=== PATIENT | female | born 1965 | race Two or more races ===

== ENCOUNTER 2018-09-26 11:42 | Inpatient (IN) | payer BC ==
[~2018-09-26] VITALS: Ht 170.2 cm; Wt 59.0 kg
[2018-09-26 11:43] VITALS: BP 113/57
[2018-09-26] MEDS ORDERED: Thiamine 100mg tab ORAL ONE (12:30)
[2018-09-26 13:09] LABS: APPEARANCE,URINE CLEAR; BILIRUBIN, URINE NEGATIVE (NEGATIVE); COLOR,URINE PALE YELLOW; GLUCOSE, URINE (UA) NEGATIVE (NEGATIVE); KETONES,URINE NEGATIVE (NEGATIVE); LEUKOCYTE ESTERASE ,URINE NEGATIVE (NEGATIVE); NITRITE,URINE NEGATIVE (NEGATIVE); PH,URINE 7 (4.5-8.0); PROTEIN,URINE NEGATIVE (NEGATIVE); UROBILINOGEN,URINE NORMAL MG/DL (0.0-1.0)
[2018-09-26 13:14] LABS: BASOPHILS % (AUTO) 1.1 % (0.0-2.0); HEMATOCRIT 37.8 % (37.0-47.0); HEMOGLOBIN 12.4 G/DL (12.0-16.0); LYMPHOCYTES % (AUTO) 35.7 % (20.0-45.0); MEAN CORPUSCULAR VOLUME 80 FL (80-99); MONOCYTES % (AUTO) 6.9 % (1.0-10.0); NEUTROPHILS % (AUTO) 55.3 % (45.0-75.0); PLATELET COUNT 149 K/UL (150-450); RED BLOOD COUNT 4.71 M/UL (4.20-5.40); RED CELL DISTRIBUTION WIDTH 14.9 % (11.6-14.8); WHITE BLOOD COUNT 4.1 K/UL (4.8-10.8)
--- NOTE | 2018-09-26 13:17 | Emergency Room Report ---
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 The shading painter reports that the patient has been drinking heavily over the past several months Today the patient did not appear to recognize a shading painter Appeared to be more anxious and tremulous Also reporting that the patient was taking Ativan with alcohol and therefore contacted the paramedics Again patient here appears anxious tremulous Is a poor historian and cannot provide history of why she was brought to the ER Allergies: Coded Allergies: No Known Allergies (Unverified , 09/26/18) Patient History Limited by: medical condition Past Medical History: see triage record Pertinent Family History: none Now: No Reviewed Nursing Documentation: PMH: Agreed; PSxH: Agreed Nursing Documentation-PMH Past Medical History: No Stated History Review of Systems All Other Systems: limited - Other than the ones mentioned in the history of present illness all others are reviewed however they do stay limited due to the patient's mental status Physical Exam Vital Signs Date Time Temp Pulse Resp B/P (MAP) Pulse Ox O2 Delivery O2 Flow Rate FiO2 09/26/18 11:39 97.9 78 16 108/72 99 Room Air Sp02 EP Interpretation: reviewed, normal General Appearance: mild distress - Tremulous Head: normocephalic, atraumatic Eyes: bilateral eye PERRL, bilateral eye EOMI ENT: dry mucus membranes Neck: supple Respiratory: lungs clear, normal breath sounds Cardiovascular #1: tachycardia Gastrointestinal: non tender, soft Genitourinary: no CVA tenderness Musculoskeletal: normal inspection, back normal Neurologic: responsive - Patient is alert makes eye contact she does appear somewhat confused has difficulty appropriately answering questions, able to follow simple commands no change in speech, Skin: normal color, no rash Lymphatic: no adenopathy Medical Decision Making Diagnostic Impression: Primary Impression: Encephalopathy Additional Impressions: Rhabdomyolysis Alcohol abuse ER Course Patient appears altered and confused Given the history of alcohol abuse differentials of Wernicke's encephalopathy Other encephalopathy 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 patient shows signs of rhabdomyolysis as well Further hydrated medications are provided and patient requires inpatient care Labs Test 09/26/18 12:35 09/26/18 13:59 09/27/18 06:20 White Blood Count 4.1 K/UL (4.8-10.8) Red Blood Count 4.71 M/UL (4.20-5.40) Hemoglobin 12.4 G/DL (12.0-16.0) Hematocrit 37.8 % (37.0-47.0) Mean Corpuscular Volume 80 FL (80-99) Mean Corpuscular Hemoglobin 26.3 PG (27.0-31.0) Mean Corpuscular Hemoglobin Concent 32.7 G/DL (32.0-36.0) Red Cell Distribution Width 14.9 % (11.6-14.8) Platelet Count 149 K/UL (150-450) Mean Platelet Volume 6.5 FL (6.5-10.1) Neutrophils (%) (Auto) 55.3 % (45.0-75.0) Lymphocytes (%) (Auto) 35.7 % (20.0-45.0) Monocytes (%) (Auto) 6.9 % (1.0-10.0) Eosinophils (%) (Auto) 1.0 % (0.0-3.0) Basophils (%) (Auto) 1.1 % (0.0-2.0) Urine Color Pale yellow Urine Appearance Clear Urine pH 7 (4.5-8.0) Urine Specific [place] 1.005 (1.005-1.035) Urine Protein Negative (NEGATIVE) Urine Glucose (UA) Negative (NEGATIVE) Urine Ketones Negative (NEGATIVE) Urine Blood Negative (NEGATIVE) Urine Nitrite Negative (NEGATIVE) Urine Bilirubin Negative (NEGATIVE) Urine Urobilinogen Normal MG/DL (0.0-1.0) Urine Leukocyte Esterase Negative (NEGATIVE) Sodium Level 139 MMOL/L (136-145) 140 MMOL/L (136-145) Potassium Level 4.0 MMOL/L (3.5-5.1) 3.4 MMOL/L (3.5-5.1) Chloride Level 99 MMOL/L (98-107) 102 MMOL/L (98-107) Carbon Dioxide Level 32 MMOL/L (21-32) 31 MMOL/L (21-32) Anion Gap 8 mmol/L (5-15) 8 mmol/L (5-15) Blood Urea Nitrogen 4 mg/dL (7-18) 4 mg/dL (7-18) Creatinine 0.6 MG/DL (0.55-1.30) 0.6 MG/DL (0.55-1.30) Estimat Glomerular Filtration Rate > 60 mL/min (>60) > 60 mL/min (>60) Glucose Level 93 MG/DL (74-106) 118 MG/DL (74-106) Calcium Level 8.6 MG/DL (8.5-10.1) 9.3 MG/DL (8.5-10.1) Total Bilirubin 0.7 MG/DL (0.2-1.0) Aspartate Amino Transf (AST/SGOT) 94 U/L (15-37) Alanine Aminotransferase (ALT/SGPT) 59 U/L (12-78) Alkaline Phosphatase 117 U/L (46-116) Total Creatine Kinase 804 U/L (26-308) Creatine Kinase MB 9.5 NG/ML (0.0-3.6) Creatine Kinase MB Relative Index 1.1 Troponin I 0.000 ng/mL (0.000-0.056) Total Protein 8.5 G/DL (6.4-8.2) Albumin 3.9 G/DL (3.4-5.0) Globulin 4.6 g/dL Albumin/Globulin Ratio 0.8 (1.0-2.7) Lipase 161 U/L (73-393) Urine Opiates Screen Negative (NEGATIVE) Urine Barbiturates Screen Negative (NEGATIVE) Phencyclidine (PCP) Screen Negative (NEGATIVE) Urine Amphetamines Screen Negative (NEGATIVE) Urine Benzodiazepines Screen Positive (NEGATIVE) Urine Cocaine Screen Negative (NEGATIVE) Urine Marijuana (THC) Screen Negative (NEGATIVE) Serum Alcohol 283 mg/dL Ammonia < 10 umol/L (11-32) Magnesium Level 2.0 MG/DL (1.8-2.4) Thyroid Stimulating Hormone (TSH) 1.471 uiU/mL (0.358-3.740) Rhythm Strip Diag. Results EP Interpretation: yes Rate: 110 Rhythm: no PVC's, no ectopy, other - Sinus tach Last Vital Signs Date Time Temp Pulse Resp B/P (MAP) Pulse Ox O2 Delivery O2 Flow Rate FiO2 09/26/18 11:43 97.7 113 16 113/57 96 Room Air Status: improved Disposition: ADMITTED INPATIENT Condition: Serious Rosendo Terrazas DO Sep 26, 2018 13:17
[2018-09-26 13:28] LABS: ANION GAP 8 mmol/L (5-15); BLOOD UREA NITROGEN 4 mg/dL (7-18); CALCIUM 8.6 MG/DL (8.5-10.1); CARBON DIOXIDE 32 MMOL/L (21-32); CHLORIDE 99 MMOL/L (98-107); CREATININE 0.6 MG/DL (0.55-1.30); SODIUM 139 MMOL/L (136-145)
[2018-09-26] MEDS ORDERED: UNOBMED (13:28)
[2018-09-26 13:39] LABS: ALANINE AMINOTRANSFERASE 59 U/L (12-78); ALBUMIN 3.9 G/DL (3.4-5.0); ALBUMIN/GLOBULIN RATIO 0.8 (1.0-2.7); ALKALINE PHOSPHATASE 117 U/L (46-116); ASPARTATE AMINO TRANSFERASE 94 U/L (15-37); BILIRUBIN,TOTAL 0.7 MG/DL (0.2-1.0); CKMB 9.5 NG/ML (0.0-3.6); CREATINE KINASE 804 U/L (26-308)
[2018-09-26 13:44] VITALS: BP 114/59
[2018-09-26] MEDS ORDERED: LORazepam Inj 2mg/ml 1ml IV ONE (13:45)
[2018-09-26 16:15] VITALS: BP 121/52
[2018-09-26 17:43] VITALS: BP 127/80
[2018-09-26] MEDS ORDERED: LORazepam Inj 2mg/ml 1ml IV SCH ×2 (18:45→19:00)
--- NOTE | 2018-09-26 18:56 | History & Physical ---
History and Physical History & Physicial HP dictated # [id number] Enrique Gardner MD Sep 26, 2018 18:56
[2018-09-26 20:00] VITALS: BP 128/95
[2018-09-26] MEDS: D5 1/2NS w/KCl 20mEq 1,000 ML IV SCH (20:03)
--- NOTE | 2018-09-26 20:31 | History and Physical Report ---
DATE OF ADMISSION: 09/26/2018 CHIEF COMPLAINT: The patient was found to have change in mental status. HISTORY OF PRESENT ILLNESS: This is a 53-year-old white female with history of alcohol abuse. The patient came in by paramedics. Apparently, she was drinking heavily and reported she did not recognize the caregiver. She was very anxious and tremulous. The patient was seen in the emergency room and was admitted. They reported the patient was taking Ativan and alcohol at home. When I ask her how much she drinks, she states it is usually a bottle of wine and a few beers. She stated that the last drink was 2 days ago. It is unclear if this is accurate. PAST MEDICAL HISTORY: The patient denies any history of diabetes, hypertension, heart disease, lung disease. MEDICATIONS: Prior to admission, unknown. ALLERGIES: No known drug allergies. REVIEW OF SYSTEMS: Noncontributory. PHYSICAL EXAMINATION: GENERAL: The patient is a 53-year-old female. She is restless, going up and down, lying down, sitting up, very shaky, obvious tremors, talks in short sentences. VITAL SIGNS: Blood pressure is 127/80, pulse is 113, temperature 98.6, respirations 20. HEENT: [place] conjunctivae. Anicteric sclerae. NECK: Supple. LUNGS: Clear to auscultation. HEART: S1, S2 without murmurs or rubs. ABDOMEN: Soft, nontender. EXTREMITIES: No cyanosis or edema. LABORATORY FINDINGS: The chemistry panel shows serum sodium 139, potassium 4, chloride 99, CO2 32, BUN is 4, creatinine 0.6, glucose 93, calcium 8.6, AST 94, ALT 59, ammonia is less than 10, albumin is 3.9. CBC shows WBC of 4100, hematocrit 37.8, hemoglobin is 12.4, and platelet is 149,000. UA was negative and the toxicology screen shows a serum alcohol level was 283 and was positive for benzodiazepines. ASSESSMENT: This is a 53-year-old female with history of alcohol abuse, who is admitted with change in mental status, acute encephalopathy, probably toxic metabolic. She has serum alcohol of 283, so alcohol withdrawal syndrome is less likely. It is likely that this combination of benzodiazepines and alcohol caused the patient's symptoms. PLAN: The patient will be sedated as needed. She will be on vitamins. We will give her IV fluids. Psychiatry consultation will be obtained. Case was discussed with RN. Enrique Gardner M.D. DR: Rose JOB#: [id number] CC:
[2018-09-26] MEDS: LORazepam Inj 2mg/ml 1ml IV PRN (23:58)
[2018-09-27] VITALS: BP 120/73
[2018-09-27] MEDS: LORazepam Inj 2mg/ml 1ml IV PRN ×8 (02:23→21:45)
[2018-09-27 04:00] VITALS: BP 116/70
[2018-09-27] MEDS: D5 1/2NS w/KCl 20mEq 1,000 ML IV SCH ×2 (05:00→15:00)
[2018-09-27 07:37] LABS: ANION GAP 8 mmol/L (5-15); BLOOD UREA NITROGEN 4 mg/dL (7-18); CALCIUM 9.3 MG/DL (8.5-10.1); CARBON DIOXIDE 31 MMOL/L (21-32); CHLORIDE 102 MMOL/L (98-107); CREATININE 0.6 MG/DL (0.55-1.30); POTASSIUM 3.4 MMOL/L (3.5-5.1); SODIUM 140 MMOL/L (136-145)
[2018-09-27 08:00] VITALS: BP 128/74
[2018-09-27] MEDS: Thiamine 100mg tab ORAL SCH (08:37)
--- NOTE | 2018-09-27 11:39 | General Progress Note ---
Assessment/Plan Problem List: (1) Encephalopathy ICD Codes: G93.40 - Encephalopathy, unspecified SNOMED: 20720344 (2) Acute alcoholic intoxication ICD Codes: F10.929 - Alcohol use, unspecified with intoxication, unspecified SNOMED: 29822753 Status Narrative less shaky Assessment/Plan sedate as needed Psych F/U vitamins Subjective Allergies: Coded Allergies: No Known Allergies (Unverified , 09/26/18) Subjective feels better Objective Last 24 Hour Vital Signs Date Time Temp Pulse Resp B/P (MAP) Pulse Ox O2 Delivery O2 Flow Rate FiO2 09/27/18 09:00 Room Air 09/27/18 08:00 98.1 96 22 128/74 (92) 95 09/27/18 04:00 98.3 101 18 116/70 (85) 94 09/27/18 00:00 98.6 125 18 120/73 (89) 96 09/26/18 21:00 Room Air 09/26/18 20:00 99.1 123 20 128/95 (106) 98 09/26/18 17:43 98.6 113 20 127/80 (96) 97 09/26/18 16:52 Room Air 09/26/18 16:27 98.1 110 20 121/52 99 Room Air 09/26/18 16:15 98.1 110 20 121/52 99 Room Air 09/26/18 13:44 98.5 115 20 114/59 99 Room Air 09/26/18 11:43 97.7 113 16 113/57 96 Room Air 09/26/18 11:43 113 16 Room Air 09/26/18 11:39 97.9 78 16 108/72 99 Room Air Intake and Output 09/26/18 09/27/18 19:00 07:00 Intake Total 2200 ml 250 ml Output Total 150 ml Balance 2050 ml 250 ml Intake Oral 200 ml 250 ml IV Total 2000 ml Output Urine Total 150 ml # Voids 6 3 Laboratory Tests 09/26/18 12:35: White Blood Count 4.1L, Red Blood Count 4.71, Hemoglobin 12.4, Hematocrit 37.8, Mean Corpuscular Volume 80, Mean Corpuscular Hemoglobin 26.3L, Mean Corpuscular Hemoglobin Concent 32.7, Red Cell Distribution Width 14.9H, Platelet Count 149L , Mean Platelet Volume 6.5, Neutrophils (%) (Auto) 55.3, Lymphocytes (%) (Auto) 35.7, Monocytes (%) (Auto) 6.9, Eosinophils (%) (Auto) 1.0, Basophils (%) (Auto ) 1.1, Urine Color Pale yellow, Urine Appearance Clear, Urine pH 7, Urine Specific [place] 1.005, Urine Protein Negative, Urine Glucose (UA) Negative, Urine Ketones Negative, Urine Blood Negative, Urine Nitrite Negative, Urine Bilirubin Negative, Urine Urobilinogen Normal, Urine Leukocyte Esterase Negative , Sodium Level 139, Potassium Level 4.0, Chloride Level 99, Carbon Dioxide Level 32, Anion Gap 8, Blood Urea Nitrogen 4L, Creatinine 0.6, Estimat Glomerular Filtration Rate > 60, Glucose Level 93, Calcium Level 8.6, Total Bilirubin 0.7, Aspartate Amino Transf (AST/SGOT) 94H, Alanine Aminotransferase ( ALT/SGPT) 59, Alkaline Phosphatase 117H, Total Creatine Kinase 804H, Creatine Kinase MB 9.5H, Creatine Kinase MB Relative Index 1.1, Troponin I 0.000, Total Protein 8.5H, Albumin 3.9, Globulin 4.6, Albumin/Globulin Ratio 0.8L, Lipase 161 , Urine Opiates Screen Negative, Urine Barbiturates Screen Negative, Phencyclidine (PCP) Screen Negative, Urine Amphetamines Screen Negative, Urine Benzodiazepines Screen PositiveH, Urine Cocaine Screen Negative, Urine Marijuana (THC) Screen Negative, Serum Alcohol 283 09/26/18 13:59: Ammonia < 10L 09/27/18 06:20: Sodium Level 140, Potassium Level 3.4L, Chloride Level 102, Carbon Dioxide Level 31, Anion Gap 8, Blood Urea Nitrogen 4L, Creatinine 0.6, Estimat Glomerular Filtration Rate > 60, Glucose Level 118H, Calcium Level 9.3, Magnesium Level 2.0, Thyroid Stimulating Hormone (TSH) 1.471 Height (Feet): 5 Height (Inches): 7.00 Weight (Pounds): 130 Cardiovascular: normal rate Respiratory/Chest: lungs clear Abdomen: soft Enrique Gardner MD Sep 27, 2018 11:39
[2018-09-27 11:50] VITALS: BP 140/73
[2018-09-27 16:00] VITALS: BP 124/48
[2018-09-27 20:00] VITALS: BP 135/79
[2018-09-28] VITALS: BP 125/66
[2018-09-28] MEDS: D5 1/2NS w/KCl 20mEq 1,000 ML IV SCH ×2 (00:32→12:24)
[2018-09-28] MEDS: LORazepam Inj 2mg/ml 1ml IV PRN ×2 (02:50→08:24)
[2018-09-28 04:00] VITALS: BP 104/64
[2018-09-28 08:00] VITALS: BP 109/65
[2018-09-28] MEDS: Thiamine 100mg tab ORAL SCH (08:24)
[2018-09-28 12:14] VITALS: BP 109/63
--- NOTE | 2018-09-28 13:43 | Nephrology Progress Note ---
Assessment/Plan Problem List: (1) Encephalopathy (2) Acute alcoholic intoxication Plan DC IVF Discussed with psych replete K Subjective Subjective better Objective Objective Last 24 Hour Vital Signs Date Time Temp Pulse Resp B/P (MAP) Pulse Ox O2 Delivery O2 Flow Rate FiO2 09/28/18 12:14 98.1 96 20 109/63 (78) 99 96 09/28/18 09:00 Room Air 09/28/18 08:00 97.4 110 20 109/65 (80) 97 09/28/18 04:00 98.2 94 18 104/64 (77) 98 09/28/18 00:00 97.9 101 18 125/66 (85) 98 09/27/18 21:00 Room Air 09/27/18 20:00 99.4 104 20 135/79 (97) 98 09/27/18 16:00 98.0 96 21 124/48 (73) 97 Intake and Output 09/27/18 09/28/18 18:59 06:59 Intake Total 1620 ml 960 ml Balance 1620 ml 960 ml Intake Oral 720 ml 360 ml IV Total 900 ml 600 ml # Voids 3 5 Height (Feet): 5 Height (Inches): 7.00 Weight (Pounds): 130 Cardiovascular: normal rate Extremities: other - no edema Enrique Gardner MD Sep 28, 2018 13:42
[2018-09-28 15:48] VITALS: BP 142/96
[2018-09-28 20:00] VITALS: BP 114/72
--- NOTE | 2018-09-28 23:36 | Consultation ---
History of Present Illness General Date patient seen: Sep 27, 2018 Chief Complaint: Alcohol Intoxication Present Illness HPI 53-year-old female with history of alcohol dependence and anxiety. The patient was brought in by paramedics. she was drinking heavily and reported she did not recognize the caregiver. She was severely anxious and tremulous. The patient was seen in the emergency room and was admitted. They reported the patient was taking Ativan and alcohol at home. the pt stated that she drinks a bottle of wine and a few beers everyday she has had valium and ativan but she is still anxious Allergies: Coded Allergies: No Known Allergies (Unverified , 09/26/18) Medication History Miscellaneous Medications Unable to Obtain Medications (Unable To Obtain Meds), (Reported) Patient History Limited by: medical condition History Provided By: Patient, Medical Record, PMD Healthcare decision maker N Resuscitation status Full Code Advanced Directive on File No Past Medical/Surgical History Past Medical/Surgical History: (1) Acute alcoholic intoxication (2) Alcohol abuse (3) Rhabdomyolysis (4) Encephalopathy Review of Systems Psychiatric: Reports: prior hx, anxiety, depressed feelings, emotional problems Physical Exam General Appearance: alert, severe distress, agitated, thin Neurologic: oriented x 3, responsive, depressed affect Last 24 Hour Vital Signs Date Time Temp Pulse Resp B/P (MAP) Pulse Ox O2 Delivery O2 Flow Rate FiO2 09/28/18 20:00 98.2 117 20 114/72 (86) 100 09/28/18 15:48 98.4 79 20 142/96 (111) 99 79 09/28/18 12:14 98.1 96 20 109/63 (78) 99 96 09/28/18 09:00 Room Air 09/28/18 08:00 97.4 110 20 109/65 (80) 97 09/28/18 04:00 98.2 94 18 104/64 (77) 98 09/28/18 00:00 97.9 101 18 125/66 (85) 98 Intake and Output 09/27/18 09/28/18 19:00 07:00 Intake Total 1520 ml 960 ml Balance 1520 ml 960 ml Intake Oral 720 ml 360 ml IV Total 800 ml 600 ml # Voids 3 5 Height (Feet): 5 Height (Inches): 7.00 Weight (Pounds): 130 Medications Current Medications Medications (Trade) Dose Ordered Sig/[place] Route PRN Reason Start Time Stop Time Status Last Admin Dose Admin Acetaminophen (Tylenol) 650 mg Q4H PRN ORAL Mild Pain/Temp > 100.5 09/27/18 22:30 10/27/18 22:29 Diazepam (Valium) 10 mg Q2H PRN ORAL Agitation 09/26/18 18:00 10/03/18 17:59 09/28/18 22:58 Folic Acid (Folate) 1 mg DAILY ORAL 09/26/18 18:00 10/26/18 17:59 09/28/18 08:24 Lorazepam (Ativan 2mg/ml 1ml) 1 mg Q2H PRN IV Agitation 09/26/18 21:00 10/03/18 20:59 09/28/18 08:24 Multivitamins (Multivitamins) 1 tab DAILY ORAL 09/27/18 09:00 10/27/18 08:59 09/28/18 08:24 Ondansetron HCl (Zofran) 4 mg Q4H PRN IVP Nausea & Vomiting 09/27/18 22:30 10/27/18 22:29 09/28/18 13:03 Thiamine HCl (Vitamin B1) 100 mg DAILY ORAL 09/27/18 09:00 10/27/18 08:59 09/28/18 08:24 Assessment/Plan Problem List: (1) Acute alcoholic intoxication ICD Codes: F10.929 - Alcohol use, unspecified with intoxication, unspecified SNOMED: 25428898 (2) Alcohol abuse ICD Codes: F10.10 - Alcohol abuse, uncomplicated SNOMED: 57553057 Assessment/Plan valium 10mg po q 2hr thiamine folate Pablo Scruggs MD Sep 28, 2018 23:36
[2018-09-29] VITALS: BP 103/62
--- NOTE | 2018-09-29 00:15 | General Progress Note ---
Assessment/Plan Problem List: (1) Acute alcoholic intoxication ICD Codes: F10.929 - Alcohol use, unspecified with intoxication, unspecified SNOMED: 08470730 (2) Alcohol abuse ICD Codes: F10.10 - Alcohol abuse, uncomplicated SNOMED: 47756467 Status: progressing Assessment/Plan valium 10mg po q 2hr thiamine folate mv dc ativan prozac 20mg remeron 7.5mg Subjective Date patient seen: Sep 28, 2018 Neurologic/Psychiatric: Reports: anxiety, depressed, emotional problems Allergies: Coded Allergies: No Known Allergies (Unverified , 09/26/18) Objective Last 24 Hour Vital Signs Date Time Temp Pulse Resp B/P (MAP) Pulse Ox O2 Delivery O2 Flow Rate FiO2 09/28/18 20:00 98.2 117 20 114/72 (86) 100 09/28/18 15:48 98.4 79 20 142/96 (111) 99 79 09/28/18 12:14 98.1 96 20 109/63 (78) 99 96 09/28/18 09:00 Room Air 09/28/18 08:00 97.4 110 20 109/65 (80) 97 09/28/18 04:00 98.2 94 18 104/64 (77) 98 Intake and Output 09/28/18 09/29/18 19:00 07:00 Intake Total 1340 ml Balance 1340 ml Intake Oral 840 ml IV Total 500 ml # Voids 5 Height (Feet): 5 Height (Inches): 7.00 Weight (Pounds): 130 General Appearance: alert, moderate distress, agitated, thin Neurologic: oriented x 3, responsive, depressed affect Pablo Anthony MD Sep 29, 2018 00:15
[2018-09-29 04:00] VITALS: BP 110/65
[2018-09-29 08:43] VITALS: BP 99/84
[2018-09-29] MEDS: Thiamine 100mg tab ORAL SCH (09:03)
[2018-09-29 12:14] VITALS: BP 110/72
[2018-09-29] MEDS ORDERED: VITAMIN B1100 MG PO (12:14)
[2018-09-29] MEDS ORDERED: THIAMINE HCL50 MG PO (12:14)
[2018-09-29] MEDS ORDERED: REMERON15 M1 ORAL (12:15)
[2018-09-29] MEDS ORDERED: FOLIC ACID1 M1 PO (12:15)
[2018-09-29] MEDS ORDERED: PROZAC20 MG ORAL (12:16)
--- NOTE | 2018-09-29 16:01 | Progress Note ---
DATE: 09/29/2018 SUBJECTIVE: The patient appears to be severely anxious and agitated, has poor insight and judgment into her mental condition. She stated that she needs to leave as her daughter is not doing well and is going to drop out of school. She is severely agitated, took valium two hours ago. Her vitals stable the beside her pulse which is 103. The patient stated she slept better last night. She has poor insight and judgment into her mental condition. She also stated that her " at home" The patient is requesting to be discharged. MENTAL STATUS EXAMINATION: The patient is alert and oriented times self, place, and situation. Mood is anxious. Affect is constricted. Congruent with mood. Thought process is concrete. Thought content, no suicidal or homicidal ideation. ASSESSMENT: 1. Alcohol dependence. 2. Alcohol withdrawal. 3. Anxiety disorder. 4. Major depressive disorder. PLAN: 1. The patient will continue on Prozac 20 mg in the morning. 2. Valium as needed. 3. Remeron p.o. at bedtime as needed. 4. Recommend inpatient substance use/alcohol rehabilitation. 5. We will give the patient referral. 6. The patient is not holdable. Pablo Anthony M.D. DR: Lynda JOB#: [id number] CC:
--- NOTE | 2018-10-01 09:42 | Discharge Summary ---
Discharge Summary Discharge Summary _ DATE OF ADMISSION: 09/26/2018 DATE OF DISCHARGE: 09/29/2018 REASON FOR ADMISSION: 53 years old female with history of alcohol abuse was brought by paramedics due to altered mental status. Apparently, patient was drinking heavily recently and did not recognize her caregiver. She was anxious and tremulous. Her last drink was 2 days ago . Laboratory workup revealed negative troponin . AST 94 , ALT 59 . Serum alcohol level 283. Urine toxicology screen was positive for benzodiazepines. Urinalysis negative. No leukocytosis, stable hemoglobin. CK 804 Patient admitted with diagnoses of altered mental status , acute encephalopathy probably toxic metabolic secondary to alcohol intoxication. CONSULTANTS: psychiatrist [facility]: Patient admitted and started on IV hydration with supplement of folic acid , thiamine and multivitamin. Ativan was on board as needed for withdrawal symptoms. Renal parameters , electrolytes and LFT were closely monitored. Electrolytes corrected as needed. Psychiatrist seen and evaluated the patient and diagnosed patient with acute alcohol intoxication and alcohol abuse. Patient started on Valium 10 mg orally every 2 hours as needed ( Ativan stopped ) . Patient was continued on thiamine , folic acid and multivitamin. As patient became more awake and alert, patient was started on Prozac and Remeron as per psychiatrist. Reality orientation and supportive therapy provided. Psychiatrist recommended substance use/alcohol rehabilitation program as outpatient. Referral provided for patient . According to psychiatrist , patient was not holdable . Mental status improved to baseline, no signs of withdrawal. Patient was stable for discharge home FINAL DIAGNOSES: Acute encephalopathy due to alcohol intoxication, likely toxic Acute alcohol intoxication Alcohol abuse Alcohol withdrawal DISCHARGE MEDICATIONS: See Medication Reconciliation list. DISCHARGE INSTRUCTIONS: Patient was discharged home. Follow-up with outpatient alcohol rehabilitation program. Referral provided. Patient was counseled on abstinence from alcohol. I have been assigned to dictate discharge summary for this account. I was not involved in the patient's management. Bree Daniel NP Oct 01, 2018 09:42
== END 2018-09-29 13:30 | disposition home or self-care (01) | DRG 896 ==
LOC: EDBD 11:42 → EMR 13:35 → 4E 14:05 → EDBEDREQ 15:29 → 4E 09-27 00:21
DX: F10.239 Alcohol dependence with withdrawal, unspecified (principal); G92 Toxic encephalopathy; F10.229 Alcohol dependence with intoxication, unspecified; F41.9 Anxiety disorder, unspecified; F32.9 Major depressive disorder, single episode, unspecified
CPT/HCPCS: 36415; 80048; 80053; 80307; 80329; 81003; 82140; 82550; 82553; 83690; 83735; 84443; 84484; 85025; 96361; 96374; 99285; J2405; J8499